=== PATIENT | female | born 1990 | race Caucasian/White ===

== ENCOUNTER 2018-12-03 16:32 | Emergency (ER) | payer OTHER ==
[~2018-12-03] VITALS: Ht 154.9 cm; Wt 79.4 kg
[~2018-12-03 16:32] MED LIST: IBUP-974 PO
[2018-12-03 16:40] VITALS: BP 126/85
--- NOTE | 2018-12-03 18:01 | NUR ---
VITAL SIGNS RECHECKED. PATIENT IN NO DISTRESS. EXPLAINED PATIENT FOR THE WAIT
--- NOTE | 2018-12-03 19:45 | NUR ---
PATIENT AMBULATED TO ER CHAIR E.
[2018-12-03] MEDS ORDERED: ONDANSETRON 4 MG ODT PO ONE (19:50)
[2018-12-03] MEDS ORDERED: HYDROcodone/APAP 5/325 MG 1 TAB TAB PO ONE (19:50)
[2018-12-03] MEDS ORDERED: KETOROLAC 30 MG/ML VIAL IM ONE (19:50)
--- NOTE | 2018-12-03 19:50 | NUR ---
PT IS A 28 Y/O FEMALE WHO PRESENTS TO THE ED C/O MID BACK PAIN SINCE 0300 TODAY. PER PT DENIES TX/INJURY, PT HAS ALWAYS HAD PROBLEMS WITH SPASMS. PT REPORTS 8/10 ACHING MID BACK PAIN THAT DOES NOT RADIATE, CMS INTACT, NO OBVIOUS TRAUMA/DEFORMITY. PT DENIES CP, SOB, N/V/D. PT AWAKE AND ALERT, RR EVEN/UNLABORED. PT REPOSITIONED FOR COMFORT, BED IN LOWEST POSITION. ER PROVIDER NOTIFIED. WILL CONTINUE TO MONITOR. DENIES [facility]
[2018-12-03 20:30] VITALS: BP 159/97
--- NOTE | 2018-12-03 20:30 | NUR ---
Patient discharged with v/s stable. Written and verbal after care instructions given and explained. Patient alert, oriented and verbalized understanding of instructions. Ambulatory with steady gait. All questions addressed prior to discharge. ID band removed. Patient advised to follow up with PMD. Rx of FLEXERIL AND IBUPROFEN given. Patient educated on indication of medication including possible reaction and side effects. Opportunity to ask questions provided and answered.
== END 2018-12-03 20:30 | disposition home or self-care (01) ==
LOC: MED 16:32
DX: M54.6 Pain in thoracic spine (principal); Z79.1 Long term (current) use of non-steroidal anti-inflammatories (NSAID)
CPT/HCPCS: 81002; 81025; 96372; 99283; J1885; Q0162

== ENCOUNTER 2022-09-05 20:39 | Emergency (ER) | payer OTHER ==
[~2022-09-05] VITALS: Ht 152.4 cm; Wt 77.1 kg
[2022-09-05 20:45] VITALS: BP 139/80
--- NOTE | 2022-09-05 20:48 | NUR ---
TO LOBBY A/W BED AMBULATORY
[2022-09-05 20:50] VITALS: BP 139/80
[2022-09-05 21:44] LABS: BILIRUBIN,URINE NEGATIVE (NEGATIVE); BLOOD, URINE TRACE-I (NEGATIVE); LEUKOCYTE ESTERASE ,URINE 2+ (NEGATIVE); NITRITE, URINE NEGATIVE (NEGATIVE); PH,URINE 6.5 (5.0-9.0); UGLUCOSE NEGATIVE (NEGATIVE)
[2022-09-05 21:45] LABS: APPEARANCE,URINE HAZY (CLEAR); COLOR,URINE YELLOW (YELLOW)
[2022-09-05 22:02] LABS: RBC,URINE NONE SEEN /HPF (0-5)
[2022-09-06] MEDS ORDERED: CEPH-588 PO (00:03)
[2022-09-06] MEDS ORDERED: ACET-10509 PO (00:03)
--- NOTE | 2022-09-06 00:54 | NUR ---
Patient discharged with v/s stable. Written and verbal after care instructions given and explained. Patient alert, oriented and verbalized understanding of instructions. Ambulatory with steady gait. All questions addressed prior to discharge. ID band removed. Patient advised to follow up with PMD. Rx of TYLENOL AND KEFLEX given. Patient educated on indication of medication including possible reaction and side effects. Opportunity to ask questions provided and answered.
== END 2022-09-06 00:54 | disposition home or self-care (01) ==
LOC: MED 20:39
DX: O26.891 Other specified pregnancy related conditions, first trimester (principal); Z3A.01 Less than 8 weeks gestation of pregnancy
CPT/HCPCS: 36415; 76817; 81001; 81025; 84702; 87086; 99284; Q0092